=== PATIENT | female | born 1960 | race African-American/Black ===

== ENCOUNTER 2017-07-24 11:12 | Emergency (ER) | payer OTHER ==
[2017-07-24 11:36] LABS: BILIRUBIN,URINE NEGATIVE (NEGATIVE); GLUCOSE, URINE (UA) NEGATIVE (NEGATIVE); KETONES,URINE (UA) NEGATIVE (NEGATIVE); LEUKOCYTE ESTERASE, URINE NEGATIVE (NEGATIVE); NITRITE,URINE NEGATIVE (NEGATIVE); OCCULT BLOOD,URINE SMALL (NEGATIVE); PROTEIN,URINE NEGATIVE (NEGATIVE); UROBILINOGEN,URINE 0.2 (NORMAL) E.U./dL (NORMAL)
[2017-07-24 11:37] LABS: BACTERIA,URINE Rare /HPF (None Seen); CLARITY,URINE CLEAR (CLEAR); RBC,URINE 0-5 /HPF (0-5); SQUAMOUS EPITHELIAL CELL,UR FEW Squamous (<= Few)
[2017-07-24 12:26] LABS: BASOPHILS % (AUTO) 0.4 %; EOSINOPHILS # (AUTO) 0.1 10^3/uL (0.0-0.7); EOSINOPHILS % (AUTO) 0.5 %; HGB - HEMOGLOBIN 15.8 g/dL (12.0-16.0); LYMPHOCYTES # (AUTO) 0.6 10^3/uL (1.5-3.5); LYMPHOCYTES % (AUTO) 5.2 %; MEAN CORPUSCULAR HEMOGLOBIN 28.6 pg (27.0-31.0); MEAN CORPUSCULAR HGB CONC 33.8 g/dL (32.0-36.0); MEAN CORPUSCULAR VOLUME 84.6 fL (81.0-99.0); MEAN PLATELET VOLUME 6.2 fL (7.9-10.8); MONOCYTES # (AUTO) 0.6 10^3/uL (0.0-1.0); MONOCYTES % (AUTO) 5.2 %; NEUTROPHILS # (AUTO) 10.8 10^3/uL (1.5-6.6); NEUTROPHILS % (AUTO) 88.7 %; PLT - PLATELET COUNT 362 10^3/uL (130-450); RED BLOOD COUNT 5.53 10^6/uL (4.20-5.40); RED CELL DISTRIBUTION WIDTH 13.7 % (12.0-15.0); WHITE BLOOD COUNT 12.2 x10^3/uL (4.8-10.8)
--- NOTE | 2017-07-24 12:30 | ED Physician Documentation ---
PD HPI ABD PAIN - Stated complaint Stated Complaint: BACKPX/ABDOMINAL PX/VOMITTING - Chief complaint Chief Complaint: Abd Pain - History obtained from History obtained from: Patient - History of Present Illness Timing - onset: How many days ago (few) Timing - duration: Days (few) Timing - details: Gradual onset, Still present (worse this morning) Quality: Aching, Sharp, Pain Location: RUQ, Epigastric Radiation: Upper back Improved by: No: Eating, Position Worsened by: Eating, Palpation. No: Breathing Associated symptoms: Nausea. No: Fever, Diarrhea, Melena, Hematochezia Similar symptoms before: Diagnosis (gall bladder problems, but had gallbader surgery previously.) Recently seen: Not recently seen Review of Systems Constitutional: denies: Fever Nose: denies: Rhinorrhea / runny nose, Congestion Throat: denies: Sore throat Cardiac: denies: Chest pain / pressure, Palpitations Respiratory: denies: Dyspnea, Cough GI: reports: Abdominal Pain, Nausea. denies: Vomiting, Diarrhea : denies: Dysuria, Frequency Skin: denies: Rash, Lesions PD PAST MEDICAL HISTORY - Past Medical History Past Medical History: Yes Cardiovascular: Hypertension GI: None, Other (gallbladder) - Past Surgical History Past Surgical History: Yes General: Cholecystectomy - Present Medications Home Medications: Ambulatory Orders Medication Instructions Recorded Confirmed Famotidine [Pepcid] 20 mg PO ONCE #30 tablet 07/24/17 Losartan/Hydrochlorothiazide 1 tab PO DAILY 07/24/17 [Losartan-Hctz 50-12.5 mg Tab] Ondansetron Odt [Zofran] 4 mg TL Q6H PRN #15 tablet 07/24/17 Sucralfate 1 gm PO QID #20 tablet 07/24/17 Tramadol HCl 50 mg PO Q6H PRN #20 tablet 07/24/17 - Allergies Allergies/Adverse Reactions: Allergies Allergy/AdvReac Type Severity Reaction Status Date / Time No Known Drug Allergies Allergy Verified 07/24/17 11:20 - Social History Does the pt smoke?: No Smoking Status: Never smoker Does the pt drink ETOH?: Yes Does the pt have substance abuse?: No - POLST Patient has POLST: No PD ED PE NORMAL - Vitals Vital signs reviewed: Yes - General General: Alert and oriented X 3, Well developed/nourished, Other (appears in pain) - HEENT HEENT: Atraumatic, PERRL, Pharynx benign - Neck Neck: Supple, no meningeal sign, No adenopathy - Cardiac Cardiac: RRR, No murmur - Respiratory Respiratory: Clear bilaterally - Abdomen Abdomen: Soft, Non distended, No organomegaly, Other (tender RUQ and upper abd with guarding. No percussion tender nor distension. ) - Rectal Rectal: Deferred - Back Back: No CVA TTP - Derm Derm: Normal color, Warm and dry - Extremities Extremities: No tenderness to palpate, Normal ROM s pain, No edema, No calf tenderness / cord - Neuro Neuro: Alert and oriented X 3, No motor deficit, Normal speech Results - Vitals Vitals: Oxygen O2 Source Room air - Labs Labs: Laboratory Tests 07/24/17 07/24/17 07/24/17 11:20 12:20 12:20 WBC 12.2 H RBC 5.53 H Hgb 15.8 Hct 46.8 MCV 84.6 MCH 28.6 MCHC 33.8 RDW 13.7 Plt Count 362 MPV 6.2 L Neut # 10.8 H Lymph # 0.6 L [place] # 0.6 Eos # 0.1 Baso # 0.0 Absolute Nucleated RBC 0.00 Nucleated RBC % 0.0 Sodium 139 Potassium 3.7 Chloride 100 L Carbon Dioxide 26 Anion Gap 13.0 BUN 15 Creatinine 0.8 Estimated GFR (MDRD) 91 Glucose 105 H Calcium 9.2 Total Bilirubin 0.8 AST 27 ALT 22 Alkaline Phosphatase 65 Total Protein 8.1 Albumin 4.5 Globulin 3.6 Albumin/Globulin Ratio 1.3 Lipase 12 L Urine Color YELLOW Urine Clarity CLEAR Urine pH 7.0 Ur Specific [place] 1.010 Urine Protein NEGATIVE Urine Glucose (UA) NEGATIVE Urine Ketones NEGATIVE Urine Occult Blood SMALL H Urine Nitrite NEGATIVE Urine Bilirubin NEGATIVE Urine Urobilinogen 0.2 (NORMAL) Ur Leukocyte Esterase NEGATIVE Urine RBC 0-5 Urine WBC 0-3 Ur Squamous Epith Cells FEW Squamous Urine Bacteria Rare Urine Culture Comments NOT INDICATED - Rads (name of study) RUQ US Radiology: Prelim report reviewed (normal CBD, no acute process) abd CT Radiology: Prelim report reviewed (no acute process seen. ) PD MEDICAL DECISION MAKING - ED course Complexity details: considered differential (no obvious abnormal on US, CT, labs. Presume some gastritis/duodenitis. Improved with IV and po meds here. ), d /w patient Departure - Departure Disposition: 01 Home, Self Care Clinical Impression: Upper abdominal pain Vomiting Qualifiers: Vomiting type: unspecified Vomiting Intractability: non-intractable Nausea presence: with nausea Qualified Code(s): R11.2 - Nausea with vomiting, unspecified Condition: Stable Record reviewed to determine appropriate education?: Yes Instructions: ED Gastritis, ED Epigastric Pain [facility] Prescriptions: Famotidine [Pepcid] 20 mg PO ONCE #30 tablet Ondansetron Odt [Zofran] 4 mg TL Q6H PRN #15 tablet PRN Reason: Nausea / Vomiting Sucralfate 1 gm PO QID #20 tablet Tramadol HCl 50 mg PO Q6H PRN #20 tablet PRN Reason: Pain Comments: This may be a viral illness or temporary process like that. However with the pain in the upper abdomen for a few days now, consider the idea of a gastritis or intestinal irritation. I would use an acid reducing medicine such as famotidine daily for the next week or 2. You could coat the stomach and intestine with sucralfate as well. Overnight he can use the lidocaine if needed for pains to help numb the stomach area. Use ondansetron if needed for nausea. Drink lots of fluids and use bland food initially and progress as tolerated. Recheck if not improved over the next few days and return sooner if worse again. Your ultrasound blood tests and CT scan appear normal at this time so things that do not show up on there are things like viral illnesses and irritations like gastritis. Forms: Activity restrictions Discharge Date/Time: 07/24/17 18:42
[2017-07-24 12:40] LABS: ALBUMIN 4.5 g/dL (3.2-5.5); ALBUMIN/GLOBULIN RATIO 1.3 (1.0-2.2); BILIRUBIN,TOTAL 0.8 mg/dL (0.2-1.0); CALCIUM 9.2 mg/dL (8.5-10.3); CREATININE 0.8 mg/dL (0.4-1.0); TOTAL PROTEIN 8.1 g/dL (6.7-8.2)
[2017-07-24] MEDS ORDERED: SODIUM CHLORIDE 0.9% 1,000 ML IV ONE (12:58)
[2017-07-24] MEDS ORDERED: ONDANSETRON 4 MG/2 ML VIAL IVP STA (12:58)
[2017-07-24] MEDS ORDERED: KETOROLAC 60 MG/2 ML VIAL IVP STA (12:58)
[2017-07-24] MEDS ORDERED: LIDOCAINE VISCOUS 2% 15 ML UDC MM STA ×2 (12:58→18:26)
[2017-07-24] MEDS ORDERED: MAG HYDROX/AL HYDROX/SIMETH 30 ML UDC PO STA (12:58)
[2017-07-24] MEDS ORDERED: MORPHINE 10 MG/ML VIAL IVP STA (12:58)
--- NOTE | 2017-07-24 15:25 | Ultrasound Report ---
EXAM: ABDOMEN ULTRASOUND LIMITED, RUQ EXAM DATE: 07/24/2017 02:59 PM. CLINICAL HISTORY: Upper abdominal pain. Status post cholecystectomy. COMPARISON: Ultrasound 07/30/2008. TECHNIQUE: Real-time scanning was performed with static images obtained. FINDINGS: Liver: Somewhat inhomogeneous and mildly increased in echogenicity without focal lesion. 20.2 cm. Luisana n portal vein flow: Hepatopetal. Gallbladder: Status post cholecystectomy. Biliary System: CBD measures 5 mm. No intrahepatic or extrahepatic ductal dilatation. Other: Right kidney measures 9.8 cm without hydronephrosis. IMPRESSION: 1. Status post cholecystectomy with normal diameter common duct. 2. Hepatomegaly with mild fatty infiltration of the liver. [facility] Referring Provider Line: [phone] SITE ID: [id number]
[2017-07-24] MEDS ORDERED: IOPAMIDOL-300 100 ML VIAL ONE (15:53)
[2017-07-24] MEDS ORDERED: IOPAMIDOL-300 100 ML VIAL IVP ONE (16:27)
--- NOTE | 2017-07-24 17:22 | CT Report ---
EXAM: CT ABDOMEN AND PELVIS EXAM DATE: 07/24/2017 04:26 PM. CLINICAL HISTORY: Abdominal pain COMPARISONS: None. TECHNIQUE: Routine helical CT imaging was performed through the abdomen and pelvis. IV contrast: ISOV UE 300 100mL. Enteric contrast: No. Reconstructions: Coronal and sagittal. In accordance with CT protocol optimization, one or more of the following dose reduction techniques w ere utilized for this exam: automated exposure control, adjustment of mA and/or KV based on patient s ize, or use of iterative reconstructive technique. FINDINGS: Lung Bases: Unremarkable. Liver: There is mild hepatomegaly. No focal hepatic abnormalities are seen. Gallbladder/Bile Ducts: The gallbladder is surgically absent. No evidence of significant bile duct di latation. Spleen: Normal. Pancreas: Normal. Adrenal Glands: Normal. Kidneys: Normal. No masses or hydronephrosis. Peritoneal Cavity/Bowel: No dilated or thick-walled bowel is seen. No intraperitoneal free air or erika e fluid. No enlarged mesenteric or retroperitoneal lymph nodes. The appendix is well visualized and n ormal. Pelvic Organs: Fibroid uterus. No significant adnexal abnormalities are seen. The urinary bladder is within normal limits. Vasculature: No aneurysms or other significant abnormality. Bones: No significant abnormality. Other: None. IMPRESSION: 1. There is no evidence of bowel obstruction or appendicitis. No mesenteric inflammation. 2. Fibroid uterus. 3. Status post cholecystectomy. [facility] Referring Provider Line: [phone] SITE ID: [id number]
[2017-07-24] MEDS ORDERED: ONDANSETRON ODT 4 MG Prepack 2 TL PRN (18:26)
[2017-07-24] MEDS ORDERED: FAMOTIDINE 20 MG TABLET PO STA (18:28)
[2017-07-24 18:37] VITALS: BP 109/64
== END 2017-07-24 18:42 | disposition home or self-care (01) ==
LOC: ED 11:12
DX: R10.11 Right upper quadrant pain (principal); R11.2 Nausea with vomiting, unspecified; I10 Essential (primary) hypertension
CPT/HCPCS: 36415; 74177; 76705; 80053; 81001; 83690; 85025; 96361; 96374; 96375; 99283; 99284; A9270; Q9967; 87086

== ENCOUNTER 2023-07-27 07:24 | Outpatient (CLI) | payer OTHER | END 2023-07-27 07:25 | disposition EMS.NT | LOC: EMS 07:24 | DX: M54.50 Low back pain, unspecified (principal); V49.49XA Driver injured in collision with other motor vehicles in traffic accident, initial encounter; Y92.414 Local residential or business street as the place of occurrence of the external cause ==

== ENCOUNTER 2023-07-27 09:45 | Outpatient (CLI) | payer OTHER ==
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
== END 2023-07-27 23:59 | disposition home or self-care (01) ==
LOC: DI.N 09:45
PROVIDERS: ATTEND Physician Assistant Medical
DX: M47.812 Spondylosis without myelopathy or radiculopathy, cervical region (principal); M47.814 Spondylosis without myelopathy or radiculopathy, thoracic region